=== PATIENT | female | born 1935 | race Caucasian/White ===

== ENCOUNTER 2017-06-20 13:39 | Outpatient (CLI) | payer MEDICARE | END 2017-06-20 13:40 | disposition home or self-care (01) | LOC: CTENTCT 13:39 | PROVIDERS: ATTEND Otolaryngology Plastic Surgery within the Head & Neck | DX: J32.9 Chronic sinusitis, unspecified (principal) | CPT/HCPCS: 70486 ==

== ENCOUNTER 2017-08-07 11:38 | Day surgery (SDC) | payer MEDICARE ==
[2017-08-06 16:31] VITALS: BMI 20.9
[2017-08-07] MEDS ORDERED: Oxymetazoline HCl 0.05% ( 15 ML ) ONE ×3 (11:52→14:55)
[2017-08-07 12:05] LABS: Hemoglobin 13.4 g/dL (12.0-16.0)
[2017-08-07 12:26] LABS: Anion Gap 12 mmol/L (10-20); BUN (Urea Nitrogen) 12 mg/dL (9.8-20.1); Calc. Creatinine Clearance 46 mL/min (70-130); Carbon Dioxide 27 mmol/L (23-31); Chloride 106 mmol/L (98-107); Estimated GFR-MDRD 63; Glucose 100 mg/dL (83-110); Potassium 4.4 mmol/L (3.5-5.1); Sodium 141 mmol/L (136-145)
[2017-08-07] MEDS ORDERED: Lidocaine 1% w/Epinephrine 1:200K 30 ML VIAL ONE (13:15)
[2017-08-07] MEDS ORDERED: Fentanyl 250 MCG/5 ML VIAL ONE (13:22)
[2017-08-07] MEDS ORDERED: Ondansetron HCl/PF 4 MG/2 ML Vial ONE ×2 (13:22→14:27)
[2017-08-07] MEDS ORDERED: Lidocaine 1% PF 5 ML VIAL ONE (14:27)
[2017-08-07] MEDS ORDERED: Propofol 200 MG/20 ML VIAL ONE (14:27)
[2017-08-07] MEDS ORDERED: Dexamethasone 20 MG/5 ML VIAL ONE (14:27)
[2017-08-07] MEDS ORDERED: Succinylcholine Chloride 20 MG/ML 10 ml SYRINGE FS ONE (14:27)
--- NOTE | 2017-08-07 19:37 | OP ---
DATE OF PROCEDURE: 08/07/2017 PREOPERATIVE DIAGNOSES: 1. Chronic rhinosinusitis. 2. Bilateral inferior turbinate hypertrophy. 3. Nasal obstruction. POSTOPERATIVE DIAGNOSES: 1. Chronic rhinosinusitis. 2. Bilateral inferior turbinate hypertrophy. 3. Nasal obstruction. PROCEDURES: 1. Bilateral endoscopic sinus surgery, total ethmoidectomies. 2. Bilateral endoscopic sinus surgery, sphenoidotomies. 3. Right endoscopic sinus surgery, maxillary antrostomy. 4. Left endoscopic frontal sinusotomy. 5. Left endoscopic resection of casey bullosa. 6. Bilateral inferior turbinate submucous resection. SURGEON: Derrek Dumont M.D. ESTIMATED BLOOD LOSS: 20 mL. COMPLICATIONS: None. PROCEDURE IN DETAIL: The patient was taken to the operating room and placed supine on the table. Ge neral endotracheal anesthesia was obtained by the Anesthesia staff. Tube was secured in the left low er lip. The patient was placed in the beach chair position. Afrin pledgets were placed in the nasal cavity. This patient was prepped and draped for standard nasal procedure. Following this, the 0-de gree scope was advanced into the nasal cavity. 1% lidocaine with 1:100,000 epinephrine was injected in the inferior turbinates and middle turbinates bilaterally. Following this, the left middle turbin ate was visualized using the 0-degree scope and a sickle knife was used to make a vertical incision. The lateral portion of the middle turbinate was then resected using the straight Blakesley forceps a nd microdebrider. Following this, the uncinate process was identified on the right side and was rese cted using the ball-ended probe and the upbiting Blakesley forceps. Following this, the ethmoidal bu lla was then punctured on its medial and inferior aspect and was removed using the microdebrider. Fo llowing this, the grand lamella was identified and was punctured in the posterior ethmoidal cells and was resected. The sphenoid sinus ostia were then identified through the previous ethmoidectomies an d sphenoidotomies were created bilaterally and were widened medially and inferiorly on the left side. Copious amounts of purulence and bacteria products were encountered and were irrigated. Following this, the right maxillary sinus ostium was identified and was gently probed using the ball-ended prob e. Curved suction was then used to gently widen this area along with the curved microdebrider. Foll owing this, the 45-degree scope was used to visualize the left frontal recess area and frontal sinus ostium. The curved microdebrider was used to further resect the frontal sinus ostium on this left si de and widen the frontal sinus. Following this, inferior turbinates were punctured on the anterior i nferior aspect and were submucosally resected using the submucosal microdebrider. Following this, th e nasal cavity was irrigated. Mirapex were placed. The patient tolerated the procedure well.
== END 2017-08-07 16:25 | disposition home or self-care (01) ==
LOC: SDC 11:38
PROVIDERS: ATTEND Otolaryngology Plastic Surgery within the Head & Neck
PROC: 09TV8ZZ Resection of Left Ethmoid Sinus, Via Natural or Artificial Opening Endoscopic (ICD-10-PCS; principal; 2017-08-07)
PROC: 09TU8ZZ Resection of Right Ethmoid Sinus, Via Natural or Artificial Opening Endoscopic (ICD-10-PCS; 2017-08-07)
PROC: 099R8ZZ Drainage of Left Maxillary Sinus, Via Natural or Artificial Opening Endoscopic (ICD-10-PCS; 2017-08-07)
PROC: 099Q8ZZ Drainage of Right Maxillary Sinus, Via Natural or Artificial Opening Endoscopic (ICD-10-PCS; 2017-08-07)
PROC: 09BT8ZZ Excision of Left Frontal Sinus, Via Natural or Artificial Opening Endoscopic (ICD-10-PCS; 2017-08-07)
PROC: 09TL8ZZ Resection of Nasal Turbinate, Via Natural or Artificial Opening Endoscopic (ICD-10-PCS; 2017-08-07)
DX: J32.9 Chronic sinusitis, unspecified (principal); J34.3 Hypertrophy of nasal turbinates; M06.9 Rheumatoid arthritis, unspecified; F41.9 Anxiety disorder, unspecified; G47.33 Obstructive sleep apnea (adult) (pediatric); I11.0 Hypertensive heart disease with heart failure; I50.9 Heart failure, unspecified; I48.91 Unspecified atrial fibrillation; Z88.5 Allergy status to narcotic agent; Z88.8 Allergy status to other drugs, medicaments and biological substances; Z91.041 Radiographic dye allergy status; Z79.01 Long term (current) use of anticoagulants; Z79.899 Other long term (current) drug therapy
CPT/HCPCS: 36415; 80048; 85014; 85018; 93005; 93010; J0131; J1100; J2001; J2405; J2704; J3010

== ENCOUNTER 2017-10-04 09:30 | Outpatient (CLI) | payer MEDICARE ==
--- NOTE | 2017-10-04 12:25 | CT ---
CT ABDOMEN AND PELVIS WITH IV CONTRAST: Date: 10/04/17 HISTORY: Abdominal pain and diarrhea for several weeks. COMPARISON: 11/15/15. FINDINGS: There is bibasilar atelectasis. Partial visualization of cardiac pacemaking leads are seen within the right ventricle and right atria l appendage. The heart is enlarged. Vascular calcifications are seen in the abdominal aorta and involving the iliac arteries. Calcified granulomata are again seen in the liver and spleen. There does appear to be nodular periphe ral contour of the liver, which can be seen with cirrhosis. No focal hepatic mass is seen. The spleen is not enlarged. The pancreas, bilateral adrenal glands, kidneys, and urinary bladder demonstrate a normal CT appearan ce. There is evidence of prior hysterectomy. Colonic diverticulosis is present, predominantly within the region of the sigmoid colon. The opacifie d small bowel is normal in caliber. There are nonspecific, nonenlarged aortocaval lymph nodes unchanged in number compared to prior exam. There is a small amount of intraperitoneal free fluid within the abdomen and pelvis. A very tiny fat- containing umbilical hernia is present. IMPRESSION: 1. Small amount of ascites. 2. Nodular contour of the liver, likely attributable to cirrhosis. There is no evidence of splenomeg finesse. 3. Cardiomegaly with reflux of contrast into distended IVC and hepatic veins. 4. Colonic diverticulosis. 5. Hysterectomy. POS: [facility]
== END 2017-10-04 09:31 | disposition home or self-care (01) ==
LOC: SCSCT 09:30
PROVIDERS: ATTEND Family Medicine
DX: R19.7 Diarrhea, unspecified (principal); R10.9 Unspecified abdominal pain; R18.8 Other ascites; K57.30 Diverticulosis of large intestine without perforation or abscess without bleeding; K76.89 Other specified diseases of liver; I51.7 Cardiomegaly; Z90.710 Acquired absence of both cervix and uterus
CPT/HCPCS: 74177

== ENCOUNTER 2018-04-21 12:53 | Outpatient (CLI) | payer MEDICARE ==
--- NOTE | 2018-04-21 16:09 | CT ---
CT NECK WITH CONTRAST: 04/21/2018 HISTORY: Palpable mass in the left cheek. FINDINGS: There is an approximately 5 mm pulmonary nodule in the left upper lobe, abutting a fissure, which is unchanged compared to a CT angiogram of the chest of 08/27/2011, and therefore benign. Again noted i s the left subclavian pacemaker. There is ACDF hardware at C5, C6, and C7. No destructive osseous l esion. At the site of the external marker for the palpable lump, there is a small, approximately 1.4 x 1.3 x 0.9 cm moderately enhancing solid mass, broadly abutting the lateral surface of the left mas seter muscle, arising from the accessory lobe or anterior extension, of the left parotid gland. 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 There is no ectasia of the parotid or submandibular valerie ts. There is no evidence of infiltrative lesion in the pterygopalatine fossa. Other than the abutme nt of the left masseter muscle, no other abnormality is identified involving the skiver machine spaces. No definite pathology is identified involving the submandibular, pharyngeal mucosal, retropharyngeal, parapharyngeal, perivertebral, or posterior cervical spaces. No significant cervical lymphadenopath y. There is atherosclerotic calcification of the left proximal internal carotid artery, including th e carotid bulb. Mild atherosclerotic calcification of contralateral right carotid bulb. No evidence of high-grade stenosis involving the vessels. No other abnormality of the carotid space. No major p athology of the larynx identified. Left thyroid calcification and small bilateral thyroid nodules. These were demonstrated on the CT angiogram of the chest of 08/27/2011. IMPRESSION: 1. 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 2. 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 3. Status post anterior cervical diskectomy and fusion of the mid and lower cervical spine. POS: [facility]
== END 2018-04-21 12:54 | disposition home or self-care (01) ==
LOC: SCSCT 12:53
PROVIDERS: ATTEND Family Medicine
DX: R22.0 Localized swelling, mass and lump, head (principal); C07 Malignant neoplasm of parotid gland; Z98.1 Arthrodesis status
CPT/HCPCS: 70491; 82565